=== PATIENT | male | born 1985 | race Caucasian/White ===

== ENCOUNTER 2017-09-28 13:10 | Emergency (ER) | payer OTHER ==
[~2017-09-28] VITALS: Ht 188 cm; Wt 90.7 kg
--- NOTE | ~2017-09-28 | EKG ---
[place] [address] [facility] [place] [address] ELECTROCARDIOGRAM REPORT Name: FREDDY HEAD Room #: NEELIMA Smith#: [id number] Admission: 09/28/17 Attend Phys: Discharge: 09/28/17 Date of : 85 Report #: [id number] THIS REPORT FOR: //name// [facility] ED Test Date: 2017-09-28 Test Time: 13:53:36 Pat Name: FREDDY HEAD Department: Room: Gender: Cardiac Care Unit Nurse: Rodrigo EDGE : 1985 Requested By: Aris Sierra Order Number: [id number] MD: Ramu Guevara Measurements Intervals [place] Rate: 112 P: 48 SC: 171 QRS: 28 QRSD: 100 T: 0 QT: 326 QTc: 445 Interpretive Statements Sinus tachycardia Probable left atrial enlargement nonspecific ST segment abnormalities No previous ECG available for comparison Electronically Signed On 09-29-2017 10:09:14 [employer] by Ramu Guevara [email or web address] <ELECTRONICALLY SIGNED> By: Ramu Guevara MD 09/29/17 1009 1353 1353 Ramu Guevara MD /EPI
[2017-09-28 13:53] LABS: HEMATOCRIT 45.8 % (42.0-52.0); HEMOGLOBIN 15.6 gm/dL (14.0-18.0); MCH 31.4 pg (26.0-34.0); MCV 92.4 fL (80.0-100.0); RBC 4.96 mil/uL (4.50-6.00); RDW 14.6 % (10.5-14.5); WBC 6.7 thou/uL (4.0-11.0)
[2017-09-28 14:02] LABS: CALCIUM 8.2 mg/dL (8.5-10.1); POTASSIUM 3.9 mmol/L (3.5-5.1)
[2017-09-28 14:09] LABS: TOTAL BILIRUBIN 0.6 mg/dL (<0.1-1.0); TOTAL PROTEIN 7.2 g/dL (6.4-8.2)
[2017-09-28] MEDS ORDERED: HAIR, SKIN & N1 EAC1 PO (16:02)
[2017-09-28] MEDS ORDERED: MEN'S MULTIVI200 MCG PO (16:02)
[2017-09-28] MEDS ORDERED: CARAFATE 1 GM TA1 G1 PO (16:03)
[2017-09-28] MEDS ORDERED: NEXIUM40 MG PO (16:03)
[2017-09-28] MEDS ORDERED: DIAZEPAM 5 MG5 M1 PO (16:03)
[2017-09-28] MEDS ORDERED: ONDANSETRON HCL4 M2 PO (16:04)
[2017-09-28 17:06] VITALS: BP 124/82
== END 2017-09-28 17:08 | disposition home or self-care (01) ==
LOC: ER 13:10
PROVIDERS: Emergency Medicine
DX: S00.11XA Contusion of right eyelid and periocular area, initial encounter (principal); F10.129 Alcohol abuse with intoxication, unspecified; Z87.891 Personal history of nicotine dependence; W18.39XA Other fall on same level, initial encounter; Y93.89 Activity, other specified; Y92.89 Other specified places as the place of occurrence of the external cause; Y99.8 Other external cause status

== ENCOUNTER 2017-11-04 18:57 | Inpatient (IN) | payer OTHER ==
[~2017-11-04] VITALS: Ht 188 cm; Wt 84.4 kg
[~2017-11-04 18:57] MED LIST: CARAFATE 1 GM TA1 G1 PO; DIAZEPAM 5 MG5 M1 PO; HAIR, SKIN & N1 EAC1 PO; MEN'S MULTIVI200 MCG PO; NEXIUM40 MG PO; ONDANSETRON HCL4 M2 PO
[2017-11-04 19:02] VITALS: BP 132/92
[2017-11-04 19:35] LABS: ABSOLUTE NEUTROPHILS 3.7 thou/uL (1.4-8.2); BASOPHILS 0.2 % (0.0-2.0); EOSINOPHILS 0.2 % (0.0-3.0); HEMATOCRIT 46.6 % (42.0-52.0); HEMOGLOBIN 15.8 gm/dL (14.0-18.0); LYMPHOCYTES 23.7 % (24.0-44.0); MCV 94.1 fL (80.0-100.0); MONOCYTES 8.5 % (1.0-8.0); PLATELET COUNT 159 thou/uL (150-400); POLYS 67.4 % (36.0-66.0); RBC 4.95 mil/uL (4.50-6.00); RDW 14.4 % (10.5-14.5); WBC 5.5 thou/uL (4.0-11.0)
[2017-11-04 19:43] LABS: CALCIUM 8.9 mg/dL (8.5-10.1); CREATININE 0.7 mg/dL (0.7-1.3); POTASSIUM 3.3 mmol/L (3.5-5.1)
[2017-11-04 19:49] LABS: ALBUMIN 4.1 g/dL (3.4-5.0); TOTAL BILIRUBIN 0.3 mg/dL (<0.1-1.0); TOTAL PROTEIN 7.6 g/dL (6.4-8.2)
[2017-11-04 21:13] VITALS: BP 130/71
[2017-11-04 21:39] LABS: MAGNESIUM 1.7 mg/dL (1.8-2.4); PHOSPHORUS 3.2 mg/dL (2.5-4.9)
[2017-11-04 21:53] VITALS: BP 135/99
[2017-11-04 22:01] LABS: AMP/METHAMP Negative (Negative); BARBITURATES Negative (Negative); BENZODIAZEPINES Negative (Negative); COCAINE Negative (Negative); METHADONE Negative (Negative); OPIATES Negative (Negative); PCP Negative (Negative)
[2017-11-04 22:06] LABS: FOLIC ACID 7.5 ng/mL (8.6-58.9)
[2017-11-04 23:05] VITALS: BP 120/80
[2017-11-05] VITALS (12 sets, daily range): BP systolic 88–131; BP diastolic 54–97
[2017-11-05 05:08] LABS: HEMATOCRIT 44.1 % (42.0-52.0); MCH 31.9 pg (26.0-34.0); RBC 4.69 mil/uL (4.50-6.00); RDW 14.5 % (10.5-14.5); WBC 5.3 thou/uL (4.0-11.0)
[2017-11-05 05:23] LABS: ALBUMIN 3.5 g/dL (3.4-5.0); CALCIUM 7.9 mg/dL (8.5-10.1); CREATININE 0.7 mg/dL (0.7-1.3); POTASSIUM 3.9 mmol/L (3.5-5.1); TOTAL BILIRUBIN 0.4 mg/dL (<0.1-1.0); TOTAL PROTEIN 6.7 g/dL (6.4-8.2)
== END 2017-11-05 12:00 | disposition left against medical advice (07) | DRG 894 ==
LOC: ER 18:57 → ICU 20:17 → EROBS 20:17 → ICU 20:47
PROVIDERS: Emergency Medicine; Nurse Practitioner Family
DX: F10.129 Alcohol abuse with intoxication, unspecified (principal); G93.40 Encephalopathy, unspecified; F32.9 Major depressive disorder, single episode, unspecified; Z53.21 Procedure and treatment not carried out due to patient leaving prior to being seen by health care provider; K21.9 Gastro-esophageal reflux disease without esophagitis; Z87.891 Personal history of nicotine dependence
CPT/HCPCS: 10078

== ENCOUNTER 2017-11-23 14:21 | Emergency (ER) | payer OTHER ==
[~2017-11-23] VITALS: Ht 185.4 cm; Wt 86.2 kg
== END 2017-11-23 15:33 | disposition home or self-care (01) ==
LOC: ER 14:21
DX: F10.10 Alcohol abuse, uncomplicated (principal); F32.9 Major depressive disorder, single episode, unspecified; Z87.891 Personal history of nicotine dependence

== ENCOUNTER 2017-11-25 16:49 | Inpatient (IN) | payer OTHER ==
[~2017-11-25] VITALS: Ht 185.4 cm; Wt 80.7 kg
[2017-11-25 17:41] LABS: HEMATOCRIT 52.7 % (42.0-52.0); HEMOGLOBIN 18.3 gm/dL (14.0-18.0); MCH 32.4 pg (26.0-34.0); MCHC 34.7 g/dL (28.0-37.0); MCV 93.4 fL (80.0-100.0); RBC 5.64 mil/uL (4.50-6.00); RDW 14.2 % (10.5-14.5)
[2017-11-25 17:50] LABS: CALCIUM 8.8 mg/dL (8.5-10.1); CREATININE 0.9 mg/dL (0.7-1.3); POTASSIUM 3.7 mmol/L (3.5-5.1)
[2017-11-25] MEDS ORDERED: EFFEXOR XR75 MG PO (17:50)
[2017-11-25 17:57] LABS: ALBUMIN 4.3 g/dL (3.4-5.0); TOTAL BILIRUBIN 0.8 mg/dL (<0.1-1.0); TOTAL PROTEIN 8.4 g/dL (6.4-8.2)
[2017-11-25 19:02] LABS: AMP/METHAMP Negative (Negative); BARBITURATES Negative (Negative); BENZODIAZEPINES Negative (Negative); COCAINE Negative (Negative); METHADONE Negative (Negative); OPIATES Negative (Negative); PCP Negative (Negative)
[2017-11-25 20:36] VITALS: BP 131/90
[2017-11-25 21:04] VITALS: BP 134/95
[2017-11-25 21:10] VITALS: BP 137/101
[2017-11-25 23:40] VITALS: BP 125/91
[2017-11-26 03:55] VITALS: BP 112/73
[2017-11-26 07:50] VITALS: BP 120/89
[2017-11-26 11:10] VITALS: BP 151/110
[2017-11-26 15:20] VITALS: BP 149/106
[2017-11-26 19:08] VITALS: BP 137/100
[2017-11-27] VITALS (8 sets, daily range): BP systolic 134–158; BP diastolic 83–120
[2017-11-27 10:56] LABS: URINE BILIRUBIN 1+ (Negative); URINE BLOOD NEGATIVE (Negative); URINE CLARITY CLEAR; URINE GLUCOSE-RANDOM* NEGATIVE (Negative); URINE KETONES TRACE (Negative); URINE LEUKOCYTES-REFLEX NEGATIVE (Negative); URINE NITRITE-REFLEX NEGATIVE (Negative); URINE PROTEIN (DIPSTICK) 1+ (Negative)
[2017-11-27 11:03] LABS: ICTOTEST (BILI CONFIRMATORY) Negative (Negative); URINE COLOR DARK YELLOW
[2017-11-27 11:08] LABS: BACTERIA-REFLEX 1-9 Few /HPF (None Seen); CASTS None Seen /LPF (None Seen); CRYSTALS None Seen /LPF (None Seen); SQUAMOUS 0-3 Few /LPF (0-3); URINE RBC None Seen /HPF (0-2); URINE WBC-REFLEX None Seen /HPF (0-5)
[2017-11-28 03:59] VITALS: BP 127/83
[2017-11-28 07:13] LABS: ALBUMIN 4.2 g/dL (3.4-5.0); CALCIUM 9.4 mg/dL (8.5-10.1); CREATININE 0.8 mg/dL (0.7-1.3); POTASSIUM 3.4 mmol/L (3.5-5.1); TOTAL BILIRUBIN 1.8 mg/dL (<0.1-1.0)
[2017-11-28 07:55] VITALS: BP 119/80
[2017-11-28] MEDS ORDERED: GABAPENTIN 100100 MG PO (09:12)
[2017-11-28] MEDS ORDERED: ACCUPRIL40 MG PO (09:12)
[2017-11-28] MEDS ORDERED: EFFEXOR XR75 MG PO (09:12)
[2017-11-28] MEDS ORDERED: VITAMIN B-1100 M2 PO (09:13)
[2017-11-28 09:28] VITALS: BP 119/80
== END 2017-11-28 11:42 | disposition home or self-care (01) | DRG 896 ==
LOC: ER 16:49 → 3W 19:22 → EROBS 19:22 → 3W 21:05
PROVIDERS: Family Medicine; Nurse Practitioner Acute Care; Physician Assistant
DX: F10.239 Alcohol dependence with withdrawal, unspecified (principal); E43 Unspecified severe protein-calorie malnutrition; F10.229 Alcohol dependence with intoxication, unspecified; F32.9 Major depressive disorder, single episode, unspecified; R74.0 Nonspecific elevation of levels of transaminase and lactic acid dehydrogenase [LDH]; Z60.2 Problems related to living alone; E86.0 Dehydration; Z79.899 Other long term (current) drug therapy; Z68.23 Body mass index [BMI] 23.0-23.9, adult; Z87.11 Personal history of peptic ulcer disease
CPT/HCPCS: 10779